=== PATIENT | male | born 1990 | race African-American/Black ===

== ENCOUNTER 2025-04-10 01:00 | Emergency (ER) | payer SELFPAY ==
[2025-04-10 01:08] VITALS: BP 142/102; PULSE 70; RESP 15; TEMP 36.6; O2SAT 99
[2025-04-10 01:09] VITALS: O2SAT 99
[2025-04-10 01:11] VITALS: BP 142/102; O2SAT 99
[2025-04-10 01:53] LABS: Add Urine Microscopic? NO; Appearance Urine Clear (Clear); Bilirubin Urine Negative (Negative); Blood Urine Negative (Negative); Color Urine Yellow (Yellow); Glucose Urine UA Negative (Negative); Ketones Urine Negative (Negative); Leukocyte Esterase Ur Negative LEU/UL (Negative); Nitrate Urine Negative (Negative); Protein Urine Negative (Negative); Specific Grav Ur 1.023 (1.001-1.035); pH Urine 6.5 (5.0-9.0)
[2025-04-10 02:14] VITALS: BP 137/95
[2025-04-10 02:59] LABS: Trichomonas Vag PCR NOT DETECTED (NOT DETECTE)
--- NOTE | 2025-04-10 03:00 | ED_ITS ---
HPI - General Adult General Chief complaint: Urogenital-Male Stated complaint: sti testing Time Seen by Provider: 04/10/25 01:50 History of Present Illness HPI narrative: Patient is a 35-year-old male who presents to the emergency department this evening for STD testing. Patient states that he was talking to a girl in [place] and had unprotected intercourse 2 months ago and was recently informed by her that she tested positive for gonorrhea so he wanted to get checked out. Patient denies any dysuria or hematuria, any genital rash does state that he does have frequent urination. Since her, patient denies any sexual partners since then. Denies any additional concerns. Review of Systems Review of Systems: All systems are reviewed and are negative unless stated otherwise in the HPI. Exam Narrative: General: Alert, awake, afebrile, in no acute distress. HEENT: PERRL, no rhinorrhea, no post nasal drip, oropharynx clear. Neck: Trachea midline, no JVD, no lymphadenopathy. Cardiovascular: Regular rate and rhythm, no murmurs, rubs or gallops, no peripheral edema. Respiratory: Clear to auscultation bilaterally, no tachypnea, no wheezing, no rhonchi, no rubs, no respiratory distress. Abdomen: Soft, nontender, nondistended, no rebound, no guarding, no peritoneal signs. Musculoskeletal: No joint swelling or deformity, normal muscle tone. Skin: No rashes or petechia, no signs of infection. Psychiatric: Alert and oriented, normal behavior and judgment for situation. Neurological: Alert and oriented to person, place, and time. Follows all commands. No focal deficits, speech is clear and fluent. Course Vital Signs Vital signs: Vital Signs Temperature 97.8 F 04/10/25 01:08 Pulse Rate 70 04/10/25 01:08 Respiratory Rate 15 04/10/25 01:08 Blood Pressure 142/102 H 04/10/25 01:08 Pulse Oximetry 99 04/10/25 01:08 Temperature 97.8 F 04/10/25 01:08 Pulse Rate 70 04/10/25 01:08 Respiratory Rate 15 04/10/25 01:08 Blood Pressure 137/95 H 04/10/25 02:14 Pulse Oximetry 99 04/10/25 01:11 Medical Decision Making [facility] Narrative Medical decision making narrative: The patient was evaluated by myself in the emergency department. History is obtained from patient who is an independent historian and physical exam was performed. External medical records were reviewed at this time. Laboratory results obtained revealing urinalysis unremarkable. STD testing negative for gonorrhea, chlamydia, Trichomonas. Differential diagnosis considerations include UTI, STDs including gonorrhea, chlamydia, Trichomonas. Comorbidities impacting this visit include none. I have evaluated and discussed social determinants of health with the patient that could potentially impact subsequent diagnosis and treatment plans. On repeat assessment of the patient, reevaluation revealed that the patient is doing well and is in no acute distress. Patient symptoms have remained stable since he arrived to our emergency department. Repeat vital signs were all reviewed and noted to be stable. Differential diagnosis and treatment plan were discussed with the patient at bedside. Patient agrees with discussion and after shared medical decision making agrees with discharge. All questions were answered to the patient's satisfaction. Patient will follow up with his PCP in 3-5 days. Patient was provided with strict return precautions and instructed to return to the emergency department if any new or worsening symptoms develop. The patient was discharged in stable condition. Vital Signs Vital Signs: Vital Signs Temperature 97.8 F 04/10/25 01:08 Pulse Rate 70 04/10/25 01:08 Respiratory Rate 15 04/10/25 01:08 Blood Pressure 142/102 H 04/10/25 01:08 Pulse Oximetry 99 04/10/25 01:08 Temperature 97.8 F 04/10/25 01:08 Pulse Rate 70 04/10/25 01:08 Respiratory Rate 15 04/10/25 01:08 Blood Pressure 137/95 H 04/10/25 02:14 Pulse Oximetry 99 04/10/25 01:11 Lab Data Labs: Lab Results 04/10/25 Range/Units 01:41 Urine Color Yellow (Yellow) Urine Appearance Clear (Clear) Urine pH 6.5 (5.0-9.0) Ur Specific [place] 1.023 (1.001-1.035) Urine Protein Negative (Negative) mg/dL Urine Glucose (UA) Negative (Negative) mg/dL Urine Ketones Negative (Negative) mg/dL Ur Blood (Man) Negative (Negative) Urine Nitrate Negative (Negative) Urine Bilirubin Negative (Negative) Urine Urobilinogen 1.0 (<2.0) mg/dL Leukocyte Esterase Rfl Negative (Negative) AIME/UL C. trachomatis (PCR) Not detected (NOT DETECTE) N. gonorrhoeae (PCR) Not detected (NOT DETECTE) T. vaginalis (PCR) Not detected (NOT DETECTE) Discharge Plan Discharge Clinical Impression: Urinary frequency Patient Disposition: Home Condition: Improved Instructions: Antibiotic Form Additional Instructions: Please follow-up with your family doctor within the next 3-5 days. Return to em ergency department for any new or worsening symptoms develop. Patient Language: [place] Follow-up/Referrals: Dennis Finney MD [Physician] - 3 Days PHYSICIAN,[employer] [Primary Care Provider] - Time of Disposition: 03:23
[2025-04-10 03:21] LABS: Chlamydia trachomatis NOT DETECTED (NOT DETECTE); Neisseria gonorrhoeae PCR NOT DETECTED (NOT DETECTE)
== END 2025-04-10 03:27 | disposition home or self-care (01) ==
PROVIDERS: Physician Assistant; Emergency Provider Emergency Medicine
DX: R35.0 Frequency of micturition (principal); Z11.3 Encounter for screening for infections with a predominantly sexual mode of transmission
CPT/HCPCS: 81003; 87491; 87591; 87661; 99283